=== PATIENT | female | born 1945 | race Caucasian/White ===

== ENCOUNTER → 2017-09-18 | Outpatient (CLI) | payer MEDICARE, OTHER | END | disposition home or self-care (01) | LOC: ECHO 13:08 | DX: I31.3 Pericardial effusion (noninflammatory) (principal); I08.0 Rheumatic disorders of both mitral and aortic valves | CPT/HCPCS: 93306 ==

== ENCOUNTER → 2018-11-22 | Outpatient (CLI) | payer MEDICARE, OTHER ==
--- NOTE | 2018-11-22 14:54 | CARD ---
MR#: [id number] Date of Study: 11/22/2018 Ordering Physician: BEAN CARR, Referring Physician: BEAN CARR Tech: Ju Gamez RDCS APPROVED REPORT EXAM: Two-dimensional and M-mode echocardiogram with Doppler and color Doppler. Other Information Quality : Technically LimitedHR: 72bpm Rhythm : NSRTechnically limited study due to body habitus. INDICATION Aortic Valve Disease 2D DIMENSIONS RVDd3.0 (2.9-3.5cm)Left Atrium(2D)4.0 (1.6-4.0cm) IVSd1.0 (0.7-1.1cm)Aortic Root(2D)2.6 (2.0-3.7cm) LVDd4.9 (3.9-5.9cm)LVOT Diameter2.0 (1.8-2.4cm) PWd1.1 (0.7-1.1cm)LVDs3.0 (2.5-4.0cm) FS (%) 38.9 %SV79.5 ml M-Mode DIMENSIONS Left Atrium(MM)4.35 (2.5-4.0cm)Aortic Root2.45 (2.2-3.7cm) Aortic Valve AoV Peak Bishop.425.8cm/sAoV AAN513.9cm AO Peak GR.72.5mmHgLVOT Peak Bishop.98.9cm/s AO Mean GR.46mmHgAVA (VMAX)0.73cm2 MEIR (VTI)0.76ok7UF P 1/2 Cbnd146iy Mitral Valve MV E Gowchnqw552.6cm/sMV E Peak Gr.9mmHg MV DECEL [id number] A Awbzcrlv099.4cm/s MV E Mean Gr.4mmHgE/A Ratio0.9 Pulmonary Valve PV Peak Tnhqiffi24.4cm/s LEFT VENTRICLE The left ventricle is normal size. There is borderline concentric left ventricular hypertrophy. The l eft ventricular systolic function is normal and the ejection fraction is within normal range. The Eje ction Fraction is 60-65%. There is normal LV segmental wall motion. Transmitral Doppler flow pattern is Grade I-abnormal relaxation pattern. RIGHT VENTRICLE The right ventricle is normal size. There is normal right ventricular wall thickness. The right ventr icular systolic function is normal. ATRIA The left atrium is mildly dilated. The right atrium size is normal. The interatrial septum is intact with no evidence for an atrial septal defect or patent foramen ovale as noted on 2-D or Doppler imagi ng. AORTIC VALVE The aortic valve is calcified and displays decreased opening. The aortic valve is probably trileaflet . The aortic valve is not well visualized. Doppler and Color Flow revealed mild aortic regurgitation. Technically difficult study consistent with probable severe valvular aortic stenosis. Calculated aor tic valve maximum pressure gradient of 73 mmHg and mean pressure gradient of 46 mmHg. MITRAL VALVE Mitral annular calcification is moderate. There is no evidence of mitral valve prolapse. There is no mitral valve stenosis. Doppler and Color-flow revealed mild mitral regurgitation. TRICUSPID VALVE The tricuspid valve is normal in structure and function. Doppler and Color Flow revealed no tricuspid valve regurgitation noted. There is no tricuspid valve prolapse or vegetation. There is no tricuspid valve stenosis. PULMONIC VALVE The pulmonic valve is not well visualized. GREAT VESSELS The aortic root is normal in size. The ascending aorta is normal in size. The IVC is normal in size a nd collapses >50% with inspiration. PERICARDIAL EFFUSION There is no evidence of significant pericardial effusion. Critical Notification Critical Value: No <Conclusion> The left ventricle is normal size. The left ventricular systolic function is normal and the ejection fraction is within normal range. The Ejection Fraction is 60-65%. There is borderline concentric left ventricular hypertrophy. Technically difficult study consistent with probable severe valvular aortic stenosis. Calculated aortic valve maximum pressure gradient of 73 mmHg and mean pressure gradient of 46 mmHg. Doppler and Color Flow revealed mild aortic regurgitation. Doppler and Color-flow revealed mild mitral regurgitation. Doppler and Color Flow revealed no tricuspid valve regurgitation noted. Signed by : Tomer Merlos MD Electronically Approved : 11/22/2018 14:53:53
== END | disposition home or self-care (01) ==
LOC: ECHO 13:54
PROVIDERS: ATTEND Family Medicine
DX: I08.0 Rheumatic disorders of both mitral and aortic valves (principal)
CPT/HCPCS: 93306